=== PATIENT | male | born 1985 | race African-American/Black ===

== ENCOUNTER 2016-12-15 09:00 | Emergency (ER) | payer BC ==
[~2016-12-15 09:00] MED LIST: BACTRIM DS TABL1 TAB PO; BENZONATATE PO; DICYCLOMINE HCL20 MG; DICYCLOMINE HCL20 MG PO; FLEXERIL10 MG PO; K-DUR20 ME2; K-DUR20 ME2 PO; KEFLEX PO; KETOPROFEN PO; METRONIDAZOLE PO; NAPROSYN500 MG PO; ROBAXIN500 MG PO; VOLTAREN75 MG PO; ZOFRAN ODT4 MG; ZOFRAN ODT4 MG SL
[2016-12-15 09:10] LABS: URINE SOURCE CLEAN CATCH
[2016-12-15 09:24] LABS: URINE APPEARANCE CLEAR; URINE BILIRUBIN NEG (NEG); URINE BLOOD NEG (NEG); URINE COLOR YELLOW; URINE GLUCOSE NEG (NEG); URINE KETONE NEG (NEG); URINE LEUKOCYTE ESTERASE NEG (NEG); URINE NITRATE NEG (NEG); URINE PH 7.5 (5-8); URINE PROTEIN NEG (NEG); URINE SPECIFIC GRAVITY 1.006 (1.003-1.035)
[2016-12-15 09:28] LABS: CULTURE INDICATED? NO
[2016-12-18 15:31] LABS: CHLAMYDIA TRACH Detected (Not Detected); N GONOR Not Detected (Not Detected)
== END 2016-12-15 10:04 | disposition home or self-care (01) ==
LOC: CED 09:00
PROVIDERS: Emergency Medicine
DX: R36.9 Urethral discharge, unspecified (principal)
CPT/HCPCS: 81003; 87491; 87591; 96372; 99283; J0696